=== PATIENT | female | born 1960 | race Caucasian/White ===

== ENCOUNTER 2024-05-07 05:24 | Emergency (ER) | payer BC ==
[~2024-05-07] VITALS: Ht 160 cm; Wt 99.8 kg
[2024-05-07 05:27] VITALS: TEMP 98.1
[2024-05-07] MEDS: SODIUM CHLORIDE 0.9% 1000ML 1,000 ML IV STA (05:51)
[2024-05-07] MEDS: FAMOTIDINE 20 MG/2 ML VIAL IV STA (05:51)
[2024-05-07] MEDS: ONDANSETRON HCL INJ 2MG/ML 2ML 2 MG/ML VIAL IV STA (05:51)
[2024-05-07 05:57] LABS: BASOPHILS # (AUTO) 0.1 (0.0-0.1); BASOPHILS % 0.8 % (0.0-1.0); EOSINOPHILS # (AUTO) 0.3 (0.0-0.4); EOSINOPHILS % 3.7 % (0.0-6.0); HEMATOCRIT 46.9 % (34.2-44.1); HEMOGLOBIN 15.1 g/dL (12.0-16.0); LYMPHOCYTES # (AUTO) 2.6 (1.0-3.2); MEAN CORPUSCULAR HEMOGLOBIN 29.2 pg (28-32); MEAN CORPUSCULAR HGB CONC 32.2 g/dL (31-35); MEAN CORPUSCULAR VOLUME 90.5 fL (81-99); MONOCYTES # (AUTO) 0.6 (0.2-0.8); MONOCYTES % 8.6 % (4.4-11.3); NEUTROPHILS # (AUTO) 3.6 (2.1-6.9); NEUTROPHILS % 50.5 % (38.7-80.0); PLATELET COUNT 313 x10e3/uL (140-360); RED BLOOD COUNT 5.18 x10e6/uL (3.6-5.1); WHITE BLOOD COUNT 7.22 x10e3/uL (4.8-10.8)
[2024-05-07 06:21] LABS: ALBUMIN 4.1 g/dL (3.5-5.0); ALBUMIN/GLOBULIN RATIO 1.2 (0.8-2.0); BILIRUBIN,TOTAL 0.8 mg/dL (0.2-1.2); CALCIUM 9.6 mg/dL (8.4-10.2); CREATININE, SERUM 0.86 mg/dL (0.57-1.11); TOTAL PROTEIN 7.6 g/dL (6.5-8.1)
[2024-05-07 06:26] LABS: TROPONIN I 0.018 ng/mL (0-0.300)
[2024-05-07 08:00] VITALS: PULSE 75; RESP 18
[2024-05-07 08:27] VITALS: BP 145/91; PULSE 75; RESP 18; O2SAT 96
== END 2024-05-07 08:27 | disposition home or self-care (01) ==
LOC: ER 05:35
DX: R07.89 Other chest pain (principal); I10 Essential (primary) hypertension; E03.9 Hypothyroidism, unspecified; Z98.84 Bariatric surgery status
CPT/HCPCS: 36415; 71045; 80053; 82550; 83690; 83880; 84484; 85025; 93005; 99283; J2405; J7030

== ENCOUNTER 2024-05-11 17:42 | Observation (INO) | payer BC ==
[~2024-05-11] VITALS: Ht 160 cm; Wt 100.7 kg
[2024-05-11] MEDS ORDERED: SODIUM CHLORIDE FLUSH 10 ML SYR IV PRN (18:00)
[2024-05-11 18:19] LABS: BASOPHILS # (AUTO) 0.1 (0.0-0.1); BASOPHILS % 0.6 % (0.0-1.0); EOSINOPHILS # (AUTO) 0.2 (0.0-0.4); EOSINOPHILS % 2.2 % (0.0-6.0); HEMATOCRIT 44.5 % (34.2-44.1); HEMOGLOBIN 14.2 g/dL (12.0-16.0); LYMPHOCYTES # (AUTO) 2.5 (1.0-3.2); LYMPHOCYTES % 29.4 % (18.0-39.1); MEAN CORPUSCULAR HEMOGLOBIN 29.5 pg (28-32); MEAN CORPUSCULAR HGB CONC 31.9 g/dL (31-35); MEAN CORPUSCULAR VOLUME 92.3 fL (81-99); MONOCYTES # (AUTO) 0.7 (0.2-0.8); MONOCYTES % 8.3 % (4.4-11.3); NEUTROPHILS # (AUTO) 5.1 (2.1-6.9); NEUTROPHILS % 58.9 % (38.7-80.0); PLATELET COUNT 298 x10e3/uL (140-360); RED BLOOD COUNT 4.82 x10e6/uL (3.6-5.1); RED CELL DISTRIBUTION WIDTH 14.1 % (11.7-14.4); WHITE BLOOD COUNT 8.57 x10e3/uL (4.8-10.8)
[2024-05-11 18:39] LABS: ALBUMIN/GLOBULIN RATIO 1.2 (0.8-2.0); ANION GAP 16.6 mmol/L (8-16); BILIRUBIN,TOTAL 0.6 mg/dL (0.2-1.2); CALCIUM 9.2 mg/dL (8.4-10.2); CREATININE, SERUM 1.04 mg/dL (0.57-1.11); POTASSIUM 3.6 mmol/L (3.5-5.1); TOTAL PROTEIN 7.3 g/dL (6.5-8.1)
[2024-05-11 18:45] LABS: TROPONIN I 0.027 ng/mL (0-0.300)
[2024-05-11] MEDS ORDERED: ONDANSETRON HCL INJ 2MG/ML 2ML 2 MG/ML VIAL IV PRN (19:15)
[2024-05-11] MEDS ORDERED: SODIUM CHLORIDE FLUSH 10 ML SYR INJ PRN (19:15)
[2024-05-11] MEDS: FAMOTIDINE 20 MG/2 ML VIAL IV SCH (19:43)
[2024-05-11] MEDS ORDERED: HYDRALAZINE HCL 20 MG/ML VIAL IV PRN (20:00)
[2024-05-11] MEDS ORDERED: POLYETHYLENE GLYCOL 3350 17 GM PACK PO PRN (20:00)
[2024-05-11 21:15] VITALS: PULSE 85; RESP 16; O2SAT 97
[2024-05-11 22:40] VITALS: PULSE 86; RESP 16; O2SAT 100
[2024-05-12] VITALS (8 sets, daily range): BP systolic 150–158; BP diastolic 79; PULSE 71–88; RESP 16–20; TEMP 98.1; O2SAT 95–99
[2024-05-12 04:19] LABS: TROPONIN I 0.034 ng/mL (0-0.300)
[2024-05-12] MEDS ORDERED: MONTELUKAST SOD10 MG PO (07:35)
[2024-05-12] MEDS ORDERED: LOSARTAN-HCTZ1 EAC1 PO (07:35)
[2024-05-12] MEDS ORDERED: DULOXETINE HCL60 MG PO (07:35)
[2024-05-12] MEDS ORDERED: LEVOTHYROXINE125 MCG PO (07:35)
[2024-05-12 08:10] LABS: BASOPHILS % 0.5 % (0.0-1.0); EOSINOPHILS # (AUTO) 0.2 (0.0-0.4); EOSINOPHILS % 2.3 % (0.0-6.0); HEMATOCRIT 38.2 % (34.2-44.1); HEMOGLOBIN 12.2 g/dL (12.0-16.0); LYMPHOCYTES # (AUTO) 2.8 (1.0-3.2); LYMPHOCYTES % 31.8 % (18.0-39.1); MEAN CORPUSCULAR HEMOGLOBIN 29.5 pg (28-32); MEAN CORPUSCULAR HGB CONC 31.9 g/dL (31-35); MEAN CORPUSCULAR VOLUME 92.5 fL (81-99); MONOCYTES # (AUTO) 0.9 (0.2-0.8); NEUTROPHILS # (AUTO) 4.8 (2.1-6.9); NEUTROPHILS % 54.8 % (38.7-80.0); PLATELET COUNT 249 x10e3/uL (140-360); RED BLOOD COUNT 4.13 x10e6/uL (3.6-5.1); RED CELL DISTRIBUTION WIDTH 14.2 % (11.7-14.4); WHITE BLOOD COUNT 8.67 x10e3/uL (4.8-10.8)
[2024-05-12 08:22] LABS: ANION GAP 16.2 mmol/L (8-16); CALCIUM 8.7 mg/dL (8.4-10.2); CREATININE, SERUM 0.82 mg/dL (0.57-1.11); MAGNESIUM 2.1 MG/DL (1.3-2.1); PHOSPHORUS 3.7 MG/DL (2.3-4.7)
[2024-05-12 08:23] LABS: CHOL/HDL RATIO 4.2 (3.0-3.6)
[2024-05-12 08:24] LABS: POTASSIUM 3.2 mmol/L (3.5-5.1)
[2024-05-12] MEDS: ASPIRIN 325 MG TAB EC PO SCH (08:35)
[2024-05-12] MEDS: DOCUSATE SODIUM 100 MG CAP PO SCH (08:35)
[2024-05-12 08:44] LABS: FREE T4 (FREE THYROXINE) 1.04 ng/dL (0.8-1.8); THYROID STIMULATING HORMONE 2.734 uIU/mL (0.350-4.940)
[2024-05-12] MEDS: METOPROLOL SUCCINATE 25 MG TAB XL PO SCH ×2 (11:18→21:38)
[2024-05-12] MEDS: POTASSIUM CHLORIDE 10MEQ EA PO SCH (11:18)
[2024-05-12] MEDS: ACETAMINOPHEN 325 MG TAB PO PRN (12:30)
[2024-05-12 12:32] LABS: TROPONIN I 0.014 ng/mL (0-0.300)
[2024-05-12] MEDS: DULOXETINE HCL 30 MG DELAYED RELEASE PO SCH (15:55)
[2024-05-12] MEDS: POTASSIUM CHLORIDE 10MEQ EA PO ONE (21:37)
[2024-05-13] VITALS (7 sets, daily range): BP systolic 142–163; BP diastolic 77–99; PULSE 66–83; RESP 17–19; TEMP 97.4–98.5; O2SAT 95–99
[2024-05-13] MEDS: Morphine 4mg INJECTION 4 MG/ML INJ IV PRN (02:43)
[2024-05-13] MEDS: LEVOTHYROXINE SODIUM 125 MCG TAB PO SCH (05:42)
[2024-05-13 06:55] LABS: TROPONIN I 0.006 ng/mL (0-0.300)
[2024-05-13] MEDS: LOSARTAN POTASSIUM 25 MG TAB PO SCH (09:15)
[2024-05-13] MEDS: MONTELUKAST SODIUM 10 MG TAB PO SCH (09:16)
[2024-05-13] MEDS: LOSARTAN POTASSIUM 25 MG TAB PO ONE (16:56)
[2024-05-13] MEDS ORDERED: TOPROL XL25 MG PO (17:02)
[2024-05-13] MEDS ORDERED: ONDANSETRON HCL 4 MG ORAL DISINTEGRATING TAB PO PRN (19:00)
[2024-05-13] MEDS ORDERED: PROTONIX20 MG PO (19:26)
[2024-05-13] MEDS ORDERED: FAMOTIDINE 20 MG TAB PO SCH (19:30)
== END 2024-05-13 20:03 | disposition home or self-care (01) ==
LOC: ER 17:49 → ERHOLD 19:09 → MED/SURG2 05-12 17:30
PROVIDERS: ADMIT Internal Medicine; ATTEND Internal Medicine
DX: R07.89 Other chest pain (principal); E87.6 Hypokalemia; I10 Essential (primary) hypertension; E03.9 Hypothyroidism, unspecified; F32.A Depression, unspecified; M19.91 Primary osteoarthritis, unspecified site; E66.01 Morbid (severe) obesity due to excess calories; Z68.39 Body mass index [BMI] 39.0-39.9, adult; R94.31 Abnormal electrocardiogram [ECG] [EKG]; Z79.899 Other long term (current) drug therapy; Z79.82 Long term (current) use of aspirin
CPT/HCPCS: 36415 ×2; 71045; 80048; 80053; 80061; 82550 ×2; 83036; 83735; 84100; 84439; 84443; 84484 ×3; 85025 ×2; 93005 ×2; 93306; 94760; 94799 ×3; 99284; G0378 ×3; J2270

== ENCOUNTER 2024-05-16 14:38 | Inpatient (IN) | payer BC, MEDICARE ==
[~2024-05-16] VITALS: Ht 160 cm; Wt 97.5 kg
[2024-05-16] VITALS (16 sets, daily range): BP systolic 108–144; BP diastolic 66–98; PULSE 66–80; RESP 14–20; TEMP 97.5–98.7; O2SAT 95–100
[~2024-05-16 14:38] MED LIST: DULOXETINE HCL60 MG PO; LEVOTHYROXINE125 MCG PO; LOSARTAN-HCTZ1 EAC1 PO; MONTELUKAST SOD10 MG PO; PROTONIX20 MG PO; TOPROL XL25 MG PO
[2024-05-16 14:57] LABS: BASOPHILS # (AUTO) 0.1 (0.0-0.1); BASOPHILS % 0.7 % (0.0-1.0); EOSINOPHILS # (AUTO) 0.2 (0.0-0.4); EOSINOPHILS % 2.3 % (0.0-6.0); HEMATOCRIT 44.2 % (34.2-44.1); HEMOGLOBIN 14.3 g/dL (12.0-16.0); LYMPHOCYTES # (AUTO) 2.9 (1.0-3.2); LYMPHOCYTES % 33.9 % (18.0-39.1); MEAN CORPUSCULAR HEMOGLOBIN 29.4 pg (28-32); MEAN CORPUSCULAR HGB CONC 32.4 g/dL (31-35); MEAN CORPUSCULAR VOLUME 90.9 fL (81-99); MONOCYTES # (AUTO) 0.7 (0.2-0.8); NEUTROPHILS # (AUTO) 4.6 (2.1-6.9); NEUTROPHILS % 54.9 % (38.7-80.0); PLATELET COUNT 291 x10e3/uL (140-360); RED BLOOD COUNT 4.86 x10e6/uL (3.6-5.1); RED CELL DISTRIBUTION WIDTH 13.8 % (11.7-14.4); WHITE BLOOD COUNT 8.41 x10e3/uL (4.8-10.8)
[2024-05-16 15:06] LABS: INR 0.96; PROTHROMBIN TIME 13.3 seconds (11.9-14.5)
[2024-05-16 15:07] LABS: PARTIAL THROMBOPLASTIN TIME 28.9 seconds (23.8-35.5)
[2024-05-16 15:16] LABS: ALBUMIN/GLOBULIN RATIO 1.1 (0.8-2.0); ANION GAP 17.6 mmol/L (8-16); BILIRUBIN,TOTAL 0.5 mg/dL (0.2-1.2); CALCIUM 9.6 mg/dL (8.4-10.2); POTASSIUM 3.6 mmol/L (3.5-5.1); TOTAL PROTEIN 7.7 g/dL (6.5-8.1)
[2024-05-16 15:22] LABS: TROPONIN I 0.019 ng/mL (0-0.300)
[2024-05-16] MEDS: METOPROLOL TARTRATE 25 MG TAB PO SCH ×2 (17:00→20:09)
[2024-05-16] MEDS: HEPARIN SOD (PORCINE) 1000 UNIT/ML 30ML ONE (18:35)
[2024-05-16] MEDS: HEPARIN SOD/SOD CHLORIDE 2,000 ML ONE (18:36)
[2024-05-16] MEDS: LIDOCAINE HCL 2% LOCAL 20 ML VIAL ONE (18:36)
[2024-05-16] MEDS: SODIUM CHLORIDE 0.9% 1000ML 1,000 ML ONE (18:36)
[2024-05-16] MEDS: VERAPAMIL HCL 2.5 MG/ML 2 ML VIAL ONE (18:36)
[2024-05-16] MEDS: NITROGLYCERIN/D5W 200 MCG/ML 250 ML ONE (18:36)
[2024-05-16] MEDS: ASPIRIN 325 MG TAB ONE (18:37)
[2024-05-16] MEDS: IOPAMIDOL 370 MG/ML 100 ML INFUS..BTL INJ ONE (18:37)
[2024-05-16] MEDS: BIVALRIUDIN 250 MG/VIAL VIAL IV ONE (18:37)
[2024-05-16] MEDS: FENTANYL CITRATE/PF 100MCG/2 ML INJ ONE (18:37)
[2024-05-16] MEDS: MIDAZOLAM HCL 2 MG/2 ML VIAL ONE (18:37)
[2024-05-16] MEDS: PRASUGREL 10 MG TAB ONE (18:38)
[2024-05-16] MEDS: SODIUM CHLORIDE 0.9% 1000ML 1,000 ML IV SCH (19:56)
[2024-05-16] MEDS: ATORVASTATIN 40 MG TAB PO SCH (20:08)
[2024-05-17] VITALS: BP 137/78; PULSE 69; RESP 18; TEMP 98.2; O2SAT 96
[2024-05-17 04:00] VITALS: BP 134/85; PULSE 74; RESP 18; TEMP 97.9; O2SAT 99
[2024-05-17 06:46] LABS: BASOPHILS % 0.4 % (0.0-1.0); EOSINOPHILS # (AUTO) 0.2 (0.0-0.4); EOSINOPHILS % 1.9 % (0.0-6.0); HEMATOCRIT 42.5 % (34.2-44.1); HEMOGLOBIN 13.5 g/dL (12.0-16.0); LYMPHOCYTES # (AUTO) 2.2 (1.0-3.2); LYMPHOCYTES % 21.2 % (18.0-39.1); MEAN CORPUSCULAR HEMOGLOBIN 29.2 pg (28-32); MEAN CORPUSCULAR HGB CONC 31.8 g/dL (31-35); MEAN CORPUSCULAR VOLUME 91.8 fL (81-99); MONOCYTES # (AUTO) 0.9 (0.2-0.8); MONOCYTES % 9.1 % (4.4-11.3); NEUTROPHILS # (AUTO) 6.9 (2.1-6.9); NEUTROPHILS % 66.8 % (38.7-80.0); PLATELET COUNT 272 x10e3/uL (140-360); RED BLOOD COUNT 4.63 x10e6/uL (3.6-5.1); RED CELL DISTRIBUTION WIDTH 13.5 % (11.7-14.4); WHITE BLOOD COUNT 10.26 x10e3/uL (4.8-10.8)
[2024-05-17 07:13] LABS: ANION GAP 13.5 mmol/L (8-16); CALCIUM 9.3 mg/dL (8.4-10.2); CREATININE, SERUM 0.85 mg/dL (0.57-1.11); POTASSIUM 3.5 mmol/L (3.5-5.1)
[2024-05-17 07:48] LABS: TROPONIN I 0.081 ng/mL (0-0.300)
[2024-05-17 08:07] LABS: CHOL/HDL RATIO 4.4 (3.0-3.6)
[2024-05-17] MEDS: ACETAMINOPHEN 325 MG TAB PO PRN (08:08)
[2024-05-17] MEDS: PRASUGREL 10 MG TAB PO SCH (08:09)
[2024-05-17] MEDS: ASPIRIN 81 MG CHEW TAB PO SCH (08:09)
[2024-05-17 08:16] VITALS: BP 128/77; PULSE 81; RESP 19; TEMP 99.1; O2SAT 95
[2024-05-17 08:31] VITALS: BP 128/77; PULSE 81; RESP 19; TEMP 99.1; O2SAT 95
[2024-05-17] MEDS ORDERED: EFFIENT10 MG PO (12:01)
[2024-05-17] MEDS ORDERED: ASPIRIN81 MG PO (12:02)
[2024-05-17] MEDS ORDERED: ATORVASTATIN CA20 MG PO (12:02)
[2024-05-17 12:44] VITALS: BP 138/94; PULSE 67; RESP 18; TEMP 97.6; O2SAT 97
[2024-05-17] MEDS ORDERED: ATORVASTATIN 40 MG TAB PO SCH (21:00)
== END 2024-05-17 12:45 | disposition home or self-care (01) | DRG 322 ==
LOC: ER 14:46 → ERHOLD 14:56 → MED/SURG3 18:17 → OBSVTOIN 05-17 09:40
PROVIDERS: ADMIT Internal Medicine; ATTEND Internal Medicine
PROC: 027034Z Dilation of Coronary Artery, One Artery with Drug-eluting Intraluminal Device, Percutaneous Approach (ICD-10-PCS; principal; 2024-05-16)
PROC: 4A023N7 Measurement of Cardiac Sampling and Pressure, Left Heart, Percutaneous Approach (ICD-10-PCS; 2024-05-16)
PROC: B2111ZZ Fluoroscopy of Multiple Coronary Arteries using Low Osmolar Contrast (ICD-10-PCS; 2024-05-16)
PROC: 4A023N7 Measurement of Cardiac Sampling and Pressure, Left Heart, Percutaneous Approach (ICD-10-PCS; 2024-05-17)
DX: I25.110 Atherosclerotic heart disease of native coronary artery with unstable angina pectoris (principal); E03.9 Hypothyroidism, unspecified; I10 Essential (primary) hypertension; E78.00 Pure hypercholesterolemia, unspecified; E66.01 Morbid (severe) obesity due to excess calories; Z68.38 Body mass index [BMI] 38.0-38.9, adult; F32.A Depression, unspecified; M19.90 Unspecified osteoarthritis, unspecified site; Z79.890 Hormone replacement therapy; Z82.49 Family history of ischemic heart disease and other diseases of the circulatory system; Z83.49 Family history of other endocrine, nutritional and metabolic diseases
CPT/HCPCS: 36415; 80048; 80053; 80061; 82550; 84484; 85025; 85610; 85730; 92928; 93005; 93454; 99152; 99153; 99284; C1725; C1769; C1874; C1887; G0378; J0583; J1644; J2001; J2250; J7030; Q9967